=== PATIENT | male | born 1985 | race Caucasian/White ===

== ENCOUNTER 2018-06-25 05:28 | Observation (INO) ==
[2018-06-25] MEDS ORDERED: Chlorhexidine Gluconate 2% 1 Pack (2 Cloths) TOPICAL ONE (06:06)
[2018-06-25] MEDS ORDERED: Metoprolol Tartrate 25 MG Tablet PO ONE (06:06)
[2018-06-25] MEDS ORDERED: ceFAZolin 2 GM IV; once IV.SIG ONE (06:15)
[2018-06-25] MEDS ORDERED: ceFAZolin 2 GM Premix Inj 2 GM/100 ML BAG IV.SIG ONE (06:20)
[2018-06-25] MEDS ORDERED: Sodium Chlor 0.9% Inj 500 ML IV.SIG SCH (07:00)
[2018-06-25] MEDS ORDERED: Hypromellose 0.3% Opth Gel 10 GM Bottle ONE (07:14)
[2018-06-25] MEDS ORDERED: HYDROmorphone PF Inj 2 MG/ML Vial ONE ×2 (07:14→12:20)
[2018-06-25] MEDS ORDERED: Gelatin Size 100 Topical Foam ONE (07:27)
[2018-06-25] MEDS ORDERED: methylPREDNISolone acetate 40 MG/ML VIAL ONE (07:27)
[2018-06-25] MEDS ORDERED: Bupivacaine/Epinephrine 0.5% Inj 50 ML Vial ONE (07:27)
[2018-06-25] MEDS ORDERED: Thrombin Topical Soln 5,000 UNIT Vial TOPICAL ONE (07:27)
[2018-06-25] MEDS ORDERED: fentaNYL Citrate Inj 100 MCG/2 ML Ampul ONE ×2 (08:17→11:54)
[2018-06-25] MEDS ORDERED: Neostigmine Inj 5 MG/5 ML Syringe IV.PUSH ONE (09:41)
[2018-06-25] MEDS ORDERED: Glycopyrrolate Inj 1 MG/5 ML Syringe IV.PUSH ONE (09:41)
[2018-06-25] MEDS ORDERED: Bisacodyl 10 MG Supp RECTAL PRN (11:08)
--- NOTE | 2018-06-25 11:19 | P.OP ---
Preoperative Diagnosis: L4-5 disk herniation, L5-S1 stenosis Postoperative Diagnosis: L4-5 disk herniation, L5-S1 stenosis Date of procedure: 06/25/18 Procedure: L4-5 L5-S1 left hemilaminectomy, mesiofacetectomy, foraminotomy, microsurgical resection of the disk Anesthesia: DAR Surgeon: Duane Escamilla MD Pathology: none sent Operation and Findings: INDICATIONS FOR THE SURGICAL PROCEDURE Mr Serra is a 32 year-old male who presented with intractable back pain and clinical evidence of left L5 and S1 lower extremity radiculopathy. He was found to have a disk herniation and extrusion significant stenosis at L4-5, and a disk protusion with significant mass effect on the S1 nerve root which correlated with the clinical symptoms. The patient has failed maximum nonsurgical management including multiple modalities of conservative treatment. A surgical decompression were indicated as a last resort. The [id number] details of the procedure, indications, alternatives, risks and potential complications were fully discussed with the patient. The patient fully understood. All the questions were answered. No guarantees were given. The patient voiced requesting the procedure and signed informed consents. He was offered the alternative of delaying the procedure and continuing with nonsurgical management. DETAILS OF THE SURGICAL PROCEDURE After the induction of general anesthesia, endotracheal intubation was performed. A Fuentes catheter, bilateral BRIGHT hose and sequential compression devices were placed and kept throughout the procedure. The patient was positioned prone on a Hugo table over a Triston frame. All pressure points were carefully padded with eggcrate mattress. The eyes were tapped shut after ointment was applied by the anesthesiologist to prevent corneal abrasion. A Brain hugger was placed over the exposed lower body to maintain control of the core body temperature. The lower lumbar region was prepped and draped in the usual sterile fashion. A spinal needle was placed for localization and an x- ray performed with a C-arm. A skin incision was made in the midline over the spinous processes L4-S1 with a #10 blade. Small subcutaneous bleeders were controlled with a bipolar and the dissection was carried out through the lumbar fascia exposing the spinous processes. A subperiosteal dissection was performed with a Rockwell elevator and a Bovie over the left L4-5, L5-S1 spinous process lamina and facets. A microdiscectomy self-retaining retractor was placed on the incision and an x- ray was obtained with an instrument placed underneath the lamina. At this point in the procedure the operating microscope was draped in the usual sterile fashion and brought to the field. The rest of the surgical procedure was performed using microsurgical dissection technique with exception of the closure. Once the level was confirmed, a decompressive laminectomy was performed at L4-5 , and L5-S1 on the left side, using the TPS drill with an AM-8 drill bit. A medial facetectomy was performed and the superior free border of the ligamentum flavum was dissected with a ligament dissector and removed with a thin footplate 2 mm Kerrison The medial facetectomy allowed me to expose the left S1 nerve root, which was identified and followed towards its exit in the foramen. Epidural veins located laterally to the dural sac were coagulated with a bipolar and incised with microscissors. Gentle medial retraction of the dural sac allowed inspection of the disc space. The patient had a disc herniation with an extrusion at L4-5 causing mass effect over the exiting nerve root. At L5 -S1 there was a broad based disk protusion with stenosis caused by the ligamentum Flavum and hypertrophic joint facets At L4-5 the extruded disk was carefully resected. The annulus fibrosus of the disc was coagulated with the bipolar and incised with an 11 blade. The extruded disc was carefully dissected from the surrounding tissue and removed with pituitary forceps. Then, a microdiscectomy was carried out in the standard fashion using straight and up-biting pituitary forceps. A good decompression of the dural sac and nerve root was achieved. The exit of the nerve root was inspected for residual disc fragments and hemostasis was secured with the bipolar. At L5-S1 discectomy was not necessary The incision was irrigated with a large amount of saline solution. A Valsalva maneuver failed to show any cerebrospinal fluid leak or bleeding. The decompression was assessed again and found to be satisfactory. 4m of Depomedrol was left over the epidural space. The incision was then closed in layers. The fascia was closed with 0 Vicryl sutures in an interrupted fashion. The superficial fascia was closed with 0 Vicryl sutures. The fascia was infiltrated with 0.5% Marcaine with epinephrine 1:100,000 dilution. The subcutaneous tissue was irrigated then closed with 0 Vicryl and 3-0 Vicryl. The skin was closed with 4-0 running subcuticular Vicryl. Dermabond was applied to the skin. A sterile dressing was applied. At the end of the procedure, the sponge, needle and instrument counts were all correct. Estimated blood loss was less than 50 cc. No blood transfusion was given. No intraoperative complications occurred. The patient received prophylactic antibiotics. The patient was then extubated and transferred to the recovery room in stable condition.
[2018-06-25] MEDS ORDERED: *morphine SULFATE 4 MG/ML PERIprocedure ONLY ONE ×3 (11:56→12:08)
[2018-06-25] MEDS ORDERED: ceFAZolin 2 GM Premix Inj 2 GM/50 ML PIGGYBACK IV.SIG SCH (12:00)
[2018-06-25] MEDS: Sod Chloride 0.9% Inj 1,000 ML IV.CONT SCH (12:49)
--- NOTE | 2018-06-25 12:49 | XR ---
EXAM DATE: 06/25/2018 12:38 PM EDT AGE/SEX: 32 years / Male INDICATIONS: Level localization for laminectomy L4,L5 and L5,S1. CLINICAL DATA: This is the patient's initial encounter. Patient reports that signs and symptoms have been present for 1 day and indicates a pain score of Nonresponsive. MEDICAL/SURGICAL HISTORY: None. None. COMPARISON: No prior exams available for comparison. FINDINGS: 2 spot intraoperative fluoroscopic views of the lumbar spine demonstrate localization probe projectin g posterior to the L5 vertebral body and L4-5 disc space on image 1 as well as the L5-S1 disc space p osteriorly on image 2. CONCLUSION: Localization as above. Electronically signed by: Basim Dover MD 06/25/2018 12:48 PM EDT
[2018-06-25] MEDS: ceFAZolin 2 GM/NS 100 ML IV; Q8H IV.SIG SCH ×2 (18:13)
[2018-06-25] MEDS ORDERED: Morphine Inj 4 MG/ML Vial IV.PUSH PRN (20:44)
[2018-06-25] MEDS: Senna/Docusate Sodium 8.6/50 MG Tablet PO SCH (21:01)
[2018-06-26] MEDS: ceFAZolin 2 GM/NS 100 ML IV; Q8H IV.SIG SCH ×4 (01:00→08:55)
[2018-06-26] MEDS: Morphine Inj 4 MG/ML Vial IV.PUSH PRN ×3 (01:40→10:14)
[2018-06-26] MEDS: Senna/Docusate Sodium 8.6/50 MG Tablet PO SCH (08:55)
[2018-06-26] MEDS ORDERED: Pantoprazole Sodium 20 MG DR Tablet PO SCH (09:00)
[2018-06-26] MEDS: Sod Chloride 0.9% Inj 1,000 ML IV.CONT SCH ×2 (09:02→11:30)
--- NOTE | 2018-06-26 11:16 | P.DS ---
Date of admission: 06/25/18 11:08 Primary care physician: UNKNOWN Brief History from admission: Mr Serra is a 32 year-old male who presented with intractable back pain and clinical evidence of left L5 and S1 lower extremity radiculopathy. He was found to have a disk herniation and extrusion significant stenosis at L4-5, and a disk protusion with significant mass effect on the S1 nerve root which correlated with the clinical symptoms. The patient has failed maximum nonsurgical management including multiple modalities of conservative treatment. A surgical decompression were indicated as a last resort. DS: Medications - Discharge Medications Prescriptions: cyclobenzaprine 10 mg PO TID PRN #90 tab PRN Reason: Spasms gabapentin 300 mg PO TID #90 cap DS: Summary Hospital Course: Mr. Serra underwent L4-5 L5-S1 left hemilaminectomy, mesiofacetectomy, foraminotomy, microsurgical resection of the disk for L4-5 disk herniation, L5- S1 stenosis on 06/25/18. His surgery went well without complications. He will be discharged home in stable conditions. - Time Spent with Patient Total time spent providing and/or coordinating discharge services: Less than 30 minutes - Quality: VTE Deep Vein Thrombosis/Pulmonary Embolism Present on Admission: No Exam Vital signs: Vital Signs 06/25/18 11:45 06/25/18 12:00 06/25/18 12:15 Temperature 97.5 F L Pulse Rate 108 H 80 84 Respiratory Rate 15 14 16 Blood Pressure 133/81 132/79 139/89 Pulse Oximetry 99 99 99 06/25/18 12:30 06/25/18 12:39 06/25/18 13:11 Temperature 97.7 F 97.3 F L Pulse Rate 77 77 Respiratory Rate 16 16 Blood Pressure 132/68 136/79 Pulse Oximetry 99 99 06/25/18 16:00 06/25/18 20:00 06/26/18 00:00 Temperature 98 F 97.5 F L 98.0 F Pulse Rate 96 H 73 83 Respiratory Rate 18 16 18 Blood Pressure 117/69 146/65 H 135/62 Pulse Oximetry 98 97 98 06/26/18 04:00 Temperature 97.9 F Pulse Rate 66 Respiratory Rate 18 Blood Pressure 119/67 Pulse Oximetry 98 Intake & Output 06/25/18 06/26/18 06/26/18 18:59 06:59 18:59 Intake Total 1500 / 1500 1200 / 1200 Output Total 400 / 400 Balance 1100 / 1100 1200 / 1200 Weight 101.9 kg Intake: IV 1200 / 1200 NS Inj 1,000 ML @ 100 mls/hr IV 1000 / 1000 .CONT .Q10H JEFF Rx#:[id number] Ancef Inj 2,000 MG In NS Inj 80 200 / 200 ML @ 200 mls/hr IV.SIG Q8H JEFF Rx#:[id number] Anesthesia Amount 1500 / 1500 Output: Estimated Blood Loss 50 / 50 Urine Amount (Catheter) 350 / 350 Indwelling Urethral Catheter 350 / 350 Other: # Voids 1 Date of Last Bowel Movement 06/25/18 Results Procedures completed during hospitalization: L4-5 L5-S1 left hemilaminectomy, mesiofacetectomy, foraminotomy, microsurgical resection of the disk - Impressions ITS Impressions Lumbar Spine X-Ray 06/25/18 00:00 CONCLUSION: Localization as above. Discharge Plan - Discharge Disposition Patient Disposition: 01 Discharge Home - Discharge Condition Condition: Good - Discharge Order Discharge Orders: Discharge Order (Routine); Ordered 06/26/18 Ordered By: Anne Guadarrama - Physicians Team Primary Care Provider: UNKNOWN, Attending Provider: Duane Escamilla - Rxs /Orders / Referrals /Forms Prescriptions: New cyclobenzaprine 10 mg Tablet 10 mg PO TID PRN (Reason: Spasms) Qty: 90 RF: 0 gabapentin 100 mg Capsule 300 mg PO TID Qty: 90 RF: 1 hydrocodone-acetaminophen 10-325 mg Tablet 2 tab PO Q4H PRN (Reason: Pain Scale 1 To 5) Qty: 0 RF: 0 Continue esomeprazole magnesium [Nexium] 20 mg Capsule,Delayed Release(Dr/Ec) 20 mg PO DAILY Referrals: UNKNOWN, [Primary Care Provider] - See Instructions - Discharge Instructions Patient Printed Instructions: Laminectomy (DC), Narcotic Pain Management (DC), Surgical Site Infections (DC), How To Wash Your Hands (DC), Fall Prevention (DC) , Lumbar Corset (DC), Deep Vein Thrombosis Prevention (DC) - Post Discharge Care Plan Care Plan Goals: Your Health Problems: Goals to Promote Your Health: * To prevent worsening of your condition * To maintain your health at the optimal level Directions to Meet Your Goals: * Take your medications as prescribed * Follow your dietary instruction * Follow activity as directed * Keep your appointments as scheduled * Take your immunizations and boosters as scheduled * If your symptoms worsen call your PCP * If no PCP go to Urgent Care or Emergency Room Smoking is dangerous to your health. Avoid second hand smoke. You may reach the 24-hour crisis hotline for domestic abuse at .
== END 2018-06-26 12:29 | disposition home or self-care (01) ==
LOC: HSDC 05:28 → N06 05:28
PROVIDERS: ADMIT Neurological Surgery; ATTEND Neurological Surgery